=== PATIENT | male | born 1975 | race Caucasian/White ===

== ENCOUNTER 2021-06-02 11:49 | Emergency (ER) | payer OTHER ==
[2021-06-02 12:37] LABS: HEMOGLOBIN 14.2 gm/dl (14.0-17.5); RED BLOOD COUNT 4.86 M/UL (4.20-5.50); WHITE BLOOD COUNT 13.4 K/UL (4.5-11.0)
[2021-06-02 12:58] LABS: BUN/CREATININE RATIO 15 (0-10)
[2021-06-02] MEDS ORDERED: CIPRO500 MG PO (14:27)
[2021-06-02] MEDS ORDERED: TORADOL 10 MG T10 MG PO (14:27)
[2021-06-02] MEDS ORDERED: FLOMAX0.4 MG PO (14:27)
== END 2021-06-02 15:12 | disposition home or self-care (01) ==
LOC: ER1 11:49
PROVIDERS: Physician Assistant
DX: N13.2 Hydronephrosis with renal and ureteral calculous obstruction (principal); R10.9 Unspecified abdominal pain
CPT/HCPCS: 80053; 81001; 83690; 85025; 87086; 96374; 96375; 99284; J1885; J2270; J2405; J7030

== ENCOUNTER 2021-07-31 17:43 | Emergency (ER) | payer OTHER ==
[~2021-07-31 17:43] MED LIST: CIPRO500 MG PO; FLOMAX0.4 MG PO; TORADOL 10 MG T10 MG PO
[2021-07-31 19:44] LABS: HEMOGLOBIN 13.5 gm/dl (14.0-17.5); RED BLOOD COUNT 4.41 M/UL (4.20-5.50)
[2021-07-31 20:03] LABS: BUN/CREATININE RATIO 14 (0-10)
[2021-07-31] MEDS ORDERED: OMNICEF 300 MG300 MG PO (21:46)
[2021-07-31] MEDS ORDERED: ZOFRAN ODT 4 MG4 MG PO (21:46)
[2021-07-31] MEDS ORDERED: PERCOCET 5-3251 EACH PO (21:46)
[2021-07-31] MEDS ORDERED: FLOMAX 0.4 MG0.4 MG PO (21:48)
== END 2021-07-31 21:58 | disposition home or self-care (01) ==
LOC: ER1 17:43
PROVIDERS: Family Medicine
DX: N13.2 Hydronephrosis with renal and ureteral calculous obstruction (principal); R82.81 Pyuria; Z88.8 Allergy status to other drugs, medicaments and biological substances; Z86.19 Personal history of other infectious and parasitic diseases
CPT/HCPCS: 80053; 81001; 83605; 83690; 85025; 87086; 96374; 96375; 99284; J0696; J1885; J2270; J2405